=== PATIENT | male | born 1965 | race Caucasian/White ===

== ENCOUNTER 2022-11-25 16:52 | Emergency (ER) | payer BC ==
[~2022-11-25] VITALS: Ht 175.3 cm; Wt 81.8 kg
[2022-11-25] MEDS ORDERED: SERT-141 PO (17:10)
[2022-11-25] MEDS ORDERED: ALLE60TA69 PO (17:10)
[2022-11-25] MEDS ORDERED: CLAR5TAB11 PO (17:10)
[2022-11-25 17:49] LABS: BASO % 0.7 % (0.0-1.0); EOS # 0.2 10^3/uL (0.0-0.5); EOS % 3.8 % (0.0-3.0); HEMATOCRIT 40.7 % (42.0-52.0); HEMOGLOBIN 13.6 g/dl (13.5-17.5); LYMPH # 1.6 10^3/uL (1.5-5.0); LYMPH % 28.2 % (24.0-44.0); MEAN CORPUSCULAR HEMOGLOBIN 29.5 pg (27.0-33.0); MEAN CORPUSCULAR HGB CONC 33.4 g/dl (32.0-36.5); MEAN CORPUSCULAR VOLUME 88.3 fl (80.0-96.0); MONO # 0.6 10^3/uL (0.0-0.8); MONO % 11.3 % (2.0-8.0); NEUTROPHILS # 3.1 10^3/uL (1.5-8.5); NEUTROPHILS % 55.8 % (36.0-66.0); PLATELET COUNT, AUTOMATED 188 10^3/uL (150-450); RED BLOOD COUNT 4.61 10^6/uL (4.30-6.10); WHITE BLOOD COUNT 5.5 10^3/uL (4.0-10.0)
[2022-11-25 18:06] LABS: INR 0.94; PROTHROMBIN TIME 12.8 SECONDS (12.5-14.5)
[2022-11-25 18:07] LABS: PARTIAL THROMBOPLASTIN TIME 26.9 SECONDS (24.8-34.2)
[2022-11-25] MEDS ORDERED: ASPIRIN 81MG CHEW TABLET PO ONE (18:15)
[2022-11-25 18:21] LABS: CK-MB VALUE MASS < 1.0 NG/ML (<3.6)
[2022-11-25 18:24] LABS: ALKALINE PHOSPHATASE 125 U/L (46-116); ALT/SGPT 26 U/L (7.0-40); AST/SGOT 19 U/L (<34); BILIRUBIN,DIRECT 0.1 MG/DL (<0.4); BILIRUBIN,TOTAL 0.4 MG/DL (0.3-1.2); BLOOD UREA NITROGEN 19 MG/DL (9-23); CALCIUM LEVEL 8.7 MG/DL (8.5-10.1); CARBON DIOXIDE LEVEL 26 MMOL/L (20-31); CHLORIDE LEVEL 105 MMOL/L (98-107); CREATININE FOR GFR 0.72 MG/DL (0.70-1.30); GLOMERULAR FILTRATION RATE > 60.0 (>56); GLUCOSE, FASTING 87 MG/DL (60-100); POTASSIUM SERUM 3.8 MMOL/L (3.5-5.1); SODIUM LEVEL 139 MMOL/L (136-145); TOTAL PROTEIN 6.6 G/DL (5.7-8.2)
[2022-11-25 18:25] LABS: THYROID STIMULATING HORMONE 4.182 uIU/ML (0.55-4.78)
[2022-11-25 18:29] LABS: CPK CREATINE PHOSPHOKINASE 79 U/L (46-171); MB/CK RELATIVE INDEX 1.26 (< OR =4)
[2022-11-25] MEDS ORDERED: ISOVUE-370 76% 100ML VIAL As Ordered ONE (18:32)
[2022-11-25 18:43] LABS: LIPASE 35 U/L (12-53)
[2022-11-25 19:11] LABS: CK-MB VALUE MASS < 1.0 NG/ML (<3.6)
[2022-11-25 19:13] LABS: CPK CREATINE PHOSPHOKINASE 76 U/L (46-171); MB/CK RELATIVE INDEX 1.31 (< OR =4)
[2022-11-25 19:30] VITALS: BP 125/64
== END 2022-11-25 20:14 | disposition home or self-care (01) ==
LOC: M ED 16:52
DX: R07.89 Other chest pain (principal); F32.A Depression, unspecified; Z79.899 Other long term (current) drug therapy
CPT/HCPCS: 36415; 71045; 71275; 80047; 80048; 80076; 82550; 82553; 83690; 83880; 84443; 84484; 85025; 85610; 85730; 87486; 87581; 87633; 87798; 93005; 93041; 94760; 99285; Q9967